=== PATIENT | male | born 1980 | race Caucasian/White ===

== ENCOUNTER 2022-09-25 08:24 | Emergency (ER) | payer OTHER, SELFPAY ==
[2022-09-25 08:39] VITALS: BP 136/92; PULSE 100; RESP 16; TEMP 36.6; O2SAT 100
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
[2022-09-25] MEDS: TETANUS,DIPHTHERIA,AC PERTUSSIS ADULT (0.5 ML) BOOSTRIX IM (08:55)
== END 2022-09-25 09:18 | disposition home or self-care (01) ==
PROVIDERS: Emergency Provider Nurse Practitioner Family; PCP Physician Assistant
DX: S01.81XA Laceration without foreign body of other part of head, initial encounter (principal); Y04.0XXA Assault by unarmed brawl or fight, initial encounter; Z23 Encounter for immunization; M70.21 Olecranon bursitis, right elbow
CPT/HCPCS: 12011; 90471; 90715; 99212; G0463